=== PATIENT | female | born 1940 ===

== ENCOUNTER 2018-02-09 08:13 | Outpatient (CLI) | payer OTHER ==
[~2018-02-09] VITALS: Ht 152.4 cm; Wt 64.4 kg
== END 2018-02-09 08:30 | disposition home or self-care (01) ==
LOC: OFIC 805 08:13
DX: H90.3 Sensorineural hearing loss, bilateral (principal); R25.2 Cramp and spasm; G44.89 Other headache syndrome; R42 Dizziness and giddiness